=== PATIENT | male | born 1990 | race Caucasian/White ===

== ENCOUNTER 2017-03-17 16:00 | Emergency (ER) | payer OTHER ==
[~2017-03-17] VITALS: Ht 182.9 cm; Wt 68.0 kg
[2017-03-17] MEDS ORDERED: HYDROmorphone PF 1 MG/ML DISP.SYRIN ONE (17:04)
[2017-03-17] MEDS: HYDROmorphone PF 1 MG/ML DISP.SYRIN IV/SQ PRN ×5 (17:10→20:30)
[2017-03-17] MEDS ORDERED: ONDANSETRON PF 4 MG/2 ML VIAL. IV ONE (17:15)
[2017-03-17] MEDS ORDERED: LIDOCAINE 2% 20 ML VIAL. IJ ONE (17:15)
[2017-03-17] MEDS ORDERED: IV DEXTROSE 5% 50 ML ONE (18:27)
[2017-03-17] MEDS ORDERED: ceFAZolin SODIUM 1 GM VIAL ONE (18:27)
[2017-03-17] MEDS ORDERED: ceFAZolin SODIUM 2 GM in IV DEXTROSE 5% 50 ML IV ONE (18:30)
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
[2017-03-17] MEDS ORDERED: IV NORMAL SALINE 1,000ML 1,000 ML IV ONE (20:15)
[2017-03-17] MEDS ORDERED: HYDROmorphone PF 1 MG/ML DISP.SYRIN IV/SQ PRN (20:15)
[2017-03-17 20:31] VITALS: BP 126/52
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
== END 2017-03-17 20:47 | disposition short-term general hospital (02) ==
LOC: ER 16:00
DX: S82.301A Unspecified fracture of lower end of right tibia, initial encounter for closed fracture (principal); S62.636B Displaced fracture of distal phalanx of right little finger, initial encounter for open fracture; V23.4XXA Motorcycle driver injured in collision with car, pick-up truck or van in traffic accident, initial encounter; Y93.55 Activity, bike riding; Y99.8 Other external cause status; Y92.410 Unspecified street and highway as the place of occurrence of the external cause
CPT/HCPCS: 29515; 73130; 73590; 73610; 96361; 96365; 96375; 96376; 99285; J0690; J1170; J2405; J2001; J7030

== ENCOUNTER 2021-03-22 23:54 | Emergency (ER) | payer BC ==
[~2021-03-22] VITALS: Ht 182.9 cm; Wt 68.2 kg
--- NOTE | 2021-03-23 00:08 | PHYS DOC ---
Past History Past Medical History: No Pertinent History Past Surgical History: No Surgical History Alcohol Use: None Drug Use: None Adult General Chief Complaint Chief Complaint: FLANK PAIN HPI HPI Patient is a 30-year-old male that presents with flank pain, worse on the left, 7 out of 10, sharp in nature with some radiation down to the groin and associated nonbilious none bloody emesis x3. States he is never anything like this before. Denies any recent traumas, travels, illnesses, chest pain, shortness of breath, dysuria, hematuria, blood in the stool or diarrhea. Review of Systems Review of Systems Review of systems otherwise unremarkable except noted in HPI Current Medications Current Medications Current Medications Medications (Trade) Dose Ordered Sig/Ashley Start Time Stop Time Status Last Admin Dose Admin Ketorolac Tromethamine (Toradol 15mg Vial) 15 mg 1X ONCE 03/23/21 00:00 03/23/21 00:01 UNV Ondansetron HCl (Zofran Odt) 8 mg 1X ONCE 03/23/21 00:00 03/23/21 00:01 UNV Allergies Allergies Allergies Coded Allergies Type Severity Reaction Last Updated Verified No Known Drug Allergies 03/17/17 No Physical Exam Physical Exam Constitutional: Well developed, well nourished, no acute distress, non-toxic appearance. [] HENT: Normocephalic, atraumatic, oropharynx moist, no oral exudates, Eyes: conjunctiva normal, no discharge. [] Neck: Normal range of motion, no tenderness, supple, no stridor. [] Cardiovascular:Heart rate regular rhythm, no murmur [] Lungs & Thorax: Bilateral breath sounds clear to auscultation [] Abdomen: soft, no tenderness, no masses, no pulsatile masses. [] Skin: Warm, dry, no erythema, no rash. [] Back: Bilateral CVA tenderness, worse on the left. [] Extremities: No tenderness, ROM intact, no edema. [] Neurologic: Alert and oriented X 3, no focal deficits noted. [] Psychologic: Affect normal, judgement normal, mood normal. [] EKG EKG [] Radiology/Procedures Radiology/Procedures [] Findings: Inherently limited evaluation without intravenous contrast. Lower chest: Lung bases are clear. Heart is normal in size. Liver: Unremarkable noncontrast appearance the liver. Gallbladder/Biliary Tree: Normal. Pancreas: Normal. Spleen: Normal Adrenal Glands: Normal. Kidneys/Ureters/Bladder: Kidneys are normal in size. No nephrolithiasis or hydronephrosis. Ureters and bladder are normal. Reproductive Organs: Prostate gland is normal. Stomach, small bowel, and colon: The stomach, small bowel, and colon are normal. There are surgical changes of appendectomy. Vasculature: No aortic aneurysm. Lymph Nodes: No lymphadenopathy. Peritoneum and retroperitoneum: No free fluid or free air. Bones: No acute osseous abnormality. Mild lumbar scoliosis. Impression: Unremarkable CT of the abdomen and pelvis. No urolithiasis or hydronephrosis. Electronically signed by: Whit Young MD (03/23/2021 2:04 AM) [id number] Heart Score C/O Chest Pain: No Risk Factors: Risk Factors: DM, Current or recent (<one month) smoker, HTN, HLP, family history of CAD, obesity. Risk Scores: Risk Factors: DM, Current or recent (<one month) smoker, HTN, HLP, family history of CAD, obesity. Course & Med Decision Making Course & Med Decision Making Patient is a 30-year-old male who presents with a chief complaint of flank pain associate with nausea and vomiting Vital signs not concerning. Physical exam noted above. Patient placed on dao tor with IV access established. IV fluid resuscitation begun. Zofran for nausea and Toradol for pain initially. Laboratory analysis unremarkable outside of some ketonuria which could be secondary to nausea and vomiting today and not eating anything or drinking anything. On reassessment patient was feeling much better and was able to take p.o. CT of the abdomen pelvis with no acute findings. Discussed findings with family. Discussed diet over the next couple of days and symptom management. Given Zofran for home. Advised to follow-up with primary care physician in the morning. Gave return precautions to the ED. Family grateful, verbalized understanding agree with plan of discharge. [] Dragon Disclaimer Dragon Disclaimer This electronic medical record was generated, in whole or in part, using a voice recognition dictation system. Departure Departure: Impression: Primary Impression: Nausea & vomiting Disposition: HOME / SELF CARE / HOMELESS Condition: GOOD Referrals: PCP,NO (PCP) RAMON ARIAS MD Patient Instructions: Clear Liquid Diet, Nausea and Vomiting Additional Instructions: Thank you for coming into the emergency department tonight and allowing us to take care of you. Please read the attached information carefully to go back over things we discussed. Over the next couple of days, eat a clear light diet as we discussed. Please take your nausea medicine as prescribed to allow you to drink plenty of fluids. Please follow-up in the morning with your primary care physician to update on ED visit. Please come into the ED with new or concerning symptoms as discussed. LEONIDES DOTY MD Mar 23, 2021 00:08
[2021-03-23] MEDS ORDERED: ONDANSETRON ODT 4 MG TAB.RAPDIS PO ONE (00:30)
[2021-03-23] MEDS ORDERED: KETOROLAC 15 MG/ML VIAL. IM ONE (00:30)
[2021-03-23] MEDS ORDERED: IV RINGERS SOLUTION,LACTATED 1,000 ML IV ONE (00:30)
[2021-03-23] MEDS ORDERED: KETOROLAC 15 MG/ML VIAL. IVP ONE (00:30)
[2021-03-23] MEDS ORDERED: ONDANSETRON PF 4 MG/2 ML VIAL. IVP ONE (00:30)
[2021-03-23 00:37] LABS: BASO # 0.1 x10^3/uL (0.0-0.2); BASO % 1 % (0-3); EOS % 0 % (0-3); HEMATOCRIT 47.1 % (39.0-53.0); HEMOGLOBIN 16.5 g/dL (13.0-17.5); LYMPH # 0.5 x10^3/uL (1.0-4.8); LYMPH % 6 % (24-48); MEAN CORPUSCULAR HEMOGLOBIN 31 pg (25-35); MEAN CORPUSCULAR HGB CONC 35 g/dL (31-37); MEAN CORPUSCULAR VOLUME 88 fL (79-100); MONO # 1.2 x10^3/uL (0.0-1.1); MONO % 15 % (0-9); NEUT # 6.2 x10^3uL (1.8-7.7); NEUT % 78 % (31-73); PLATELET COUNT 242 x10^3/uL (140-400); RED BLOOD COUNT 5.36 x10^6/uL (4.30-5.70); RED CELL DISTRIBUTION WIDTH 12.7 % (11.5-14.5)
[2021-03-23 00:43] LABS: CALCIUM 8.7 mg/dL (8.5-10.1); CREATININE 1.1 mg/dL (0.7-1.3); GFR 79.7; POTASSIUM 3.4 mmol/L (3.5-5.1)
[2021-03-23 01:48] LABS: BACTERIA,URINE 0 /HPF (0-FEW); BILIRUBIN,URINE NEG (NEG); CLARITY,URINE CLEAR; COLOR,URINE YELLOW; GLUCOSE,URINE NEG (NEG); NITRITE,URINE NEG (NEG); RBC,URINE 0 /HPF (0-2); SQUAMOUS EPITHELIAL CELL,UR OCC /LPF; UROBILINOGEN,URINE 0.2 mg/dL (0.2 mg/dL); WBC,URINE OCC /HPF (0-4)
--- NOTE | 2021-03-23 02:06 | RAD ---
Exam: CT abdomen/pelvis without intravenous contrast Indication: Flank pain Comparison: None Technique: Helical CT imaging performed of the abdomen and pelvis without the use of intravenous cont rast. Sagittal and coronal reformats were obtained. One or more of the following individualized dose reduction techniques were utilized for this examinat ion: 1. Automated exposure control 2. Adjustment of the mA and/or kV according to patient size 3. Use of iterative reconstruction technique. Findings: Inherently limited evaluation without intravenous contrast. Lower chest: Lung bases are clear. Heart is normal in size. Liver: Unremarkable noncontrast appearance the liver. Gallbladder/Biliary Tree: Normal. Pancreas: Normal. Spleen: Normal Adrenal Glands: Normal. Kidneys/Ureters/Bladder: Kidneys are normal in size. No nephrolithiasis or hydronephrosis. Ureters an d bladder are normal. Reproductive Organs: Prostate gland is normal. Stomach, small bowel, and colon: The stomach, small bowel, and colon are normal. There are surgical c hanges of appendectomy. Vasculature: No aortic aneurysm. Lymph Nodes: No lymphadenopathy. Peritoneum and retroperitoneum: No free fluid or free air. Bones: No acute osseous abnormality. Mild lumbar scoliosis. Impression: Unremarkable CT of the abdomen and pelvis. No urolithiasis or hydronephrosis. Electronically signed by: Whit Young MD (03/23/2021 2:04 AM) [id number]
[2021-03-23 02:16] VITALS: BP 109/51
[2021-03-23] MEDS ORDERED: ONDANSETRON 4MG ODT 4TABLET STARTPACK. PO ONE ×2 (02:18→02:30)
== END 2021-03-23 02:20 | disposition home or self-care (01) ==
LOC: ER 23:54
DX: R11.2 Nausea with vomiting, unspecified (principal); R10.9 Unspecified abdominal pain
CPT/HCPCS: 36415; 74176; 80048; 81001; 85025; 96361; 96374; 96375; 99284; J1885; J2405; J7120; Q0162